=== PATIENT | male | born 1950 | race Caucasian/White ===

== ENCOUNTER → 2017-06-18 | Outpatient (CLI) | payer OTHER | END | disposition home or self-care (01) | LOC: C.RDSM 07:35 | PROVIDERS: ATTEND Physical Medicine & Rehabilitation Sports Medicine | DX: M25.562 Pain in left knee (principal) ==

== ENCOUNTER 2018-11-20 06:23 | Inpatient (IN) ==
--- NOTE | 2018-10-29 17:37 | PAT Medication Instructions ---
Medication Instructions Date of Service October 29, 2018 Home Medications ascorbic acid (vitamin C) 1,000 mg PO QAM aspirin [Aspir-81] 81 mg PO QAM atorvastatin 40 mg PO QAM cyanocobalamin (vitamin B-12) [Vitamin B-12] 1,000 mcg PO QAM docusate sodium [Stool Softener] 250 mg PO QAM omega 6-iae-cus-fish oil [Fish Oil] 1 cap PO QAM STOP taking 2 weeks before surgery omega 7-tam-pcn-fish oil [Fish Oil] 1 cap PO QAM DO NOT take the morning of surgery ascorbic acid (vitamin C) 1,000 mg PO QAM cyanocobalamin (vitamin B-12) [Vitamin B-12] 1,000 mcg PO QAM docusate sodium [Stool Softener] 250 mg PO QAM Take morning of surgery With a small sip of water, OTHERWISE NOTHING TO EAT OR DRINK AFTER MIDNIGHT: aspirin [Aspir-81] 81 mg PO QAM atorvastatin 40 mg PO QAM Insulin Dependent Diabetic Patients * Test your blood sugar the morning of surgery * If Blood Sugar is GREATER THAN 150, take HALF of your regular dose of: * If Blood Sugar is LESS THAN 150, DO NOT TAKE ANY: Other Notes If you have any questions please call us at [phone] or [phone] or [phone] or [phone]
--- NOTE | 2018-10-30 14:08 | Anesthesiology Consultation ---
Date of Service October 30, 2018 Assessment & Plan (1) Encounter for pre-operative examination: Medical clearance with PCP on surgeon's orders Cardio clearance -- Dr. Rodriguez (per verbal from Bria at surgeon's office they asked for clearance but have not rec'd it as of 11/01) Most recent pacer check. Chart Review Chart Review: Acceptable Risk for Surgery (pending above) and Patient seen in Pre Admission Testing Teaching & Discussion Instructed NPO after midnight before surgery, except medications with 15 cc of water. Medication instructions provided according to the PAT guidelines. History Surgery Operation Date: 11/20/18 07:00 Proposed Procedures p Left Knee Total Knee Arthroplasty - Americo Guy MD Height/Weight Height: 6 ft 3 in Weight: 99.6 kg Allergies Allergy/AdvReac Type Severity Reaction Status Date / Time No Known Allergies Allergy Verified 10/28/18 14:55 Medications Home Medications Medication Instructions Recorded Confirmed Last Taken ascorbic acid (vitamin C) [Vitamin 1,000 mg PO QAM 07/29/18 10/28/18 Unknown C] aspirin [Aspir-81] 81 mg PO QAM 07/29/18 10/28/18 Unknown atorvastatin 40 mg PO QAM 07/29/18 10/28/18 Unknown cyanocobalamin (vitamin B-12) 1,000 mcg PO QAM 07/29/18 10/28/18 Unknown [Vitamin B-12] docusate sodium [Stool Softener] 250 mg PO QAM 07/29/18 10/28/18 Unknown omega 0-qyt-sdy-fish oil [Fish Oil] 1 cap PO QAM 07/29/18 10/28/18 Unknown Past Medical History Medical History Arrhythmia 14 day event monitor done 07/2018. Symptomatic PACs; 3 episodes of advanced heart block, one with 3 second pause. Had pacer put in 09/02/18 CAD (coronary artery disease) NON-OBSTRUCTIVE, "MILD" Deep vein thrombosis LLE 5+ YEARS AGO; WAS ON XARELTO X 6 MONTHS- NO ISSUES SINCE Hyperlipidemia Nausea and vomiting after administration of anesthetic agent Osteoarthritis Pacemaker 09/02/18. surespot. Most recent check 09/2018. Exercise / Class Metabolic Activity II 4-5 Yardwork/Stairs/Walk up hill (Denies CP or SOB with 1 FOS) Past Family History Family History Grandfather Family history of diabetes mellitus Past Surgical History Surgical History H/O shoulder surgery right History of arthroscopy LEFT KNEE History of cardiac cath 5+ YEARS= NO STENTS History of colonoscopy History of eye surgery B/L LENS SURGERY S/P placement of cardiac pacemaker 08/2018 at [facility]. follows with Dr. Angel. Past Anesthesia History No Hx of Anesthesia Complications (other than PONV) and No Family Hx of Anesthesia Complications History of PONV No Hx of Motion Sickness and History of PONV (MULTIPLE EPISODES) Social History Smoking Status: Former smoker tobacco type: cigarettes Smoking cigarettes per day: HX OF SOCIAL USE; QUIT 40 YEARS AGO (TOTAL OF LESS THAN A YEAR) Do You Dip or Chew Tobacco: No Hx Alcohol Use: Yes alcohol intake frequency: a few times a month Hx Substance Use: No substance use type: does not use Review of Systems Pt denies any recent chest pain, shortness of breath, palpitations, cough, fever or URI. Physical Exam Vital Signs BP: 134/78 P: 54bpm SPO2: 97% RA T: 98.2 F R: 16 ENMT Mouth: + dental restorations (one implant upper R, broken); no chipped teeth and no loose teeth Thyromental Distance: > or= 3.5 Finger Breadths (3.5) Mallampati Class: I Neck normal visual inspection; neck extension not limited Respiratory normal respiratory effort Auscultation: lungs clear to auscultation bilaterally Cardiovascular Rate/Rhythm: regular rhythm and + bradycardic Heart Sounds: no murmur Vessels: no carotid bruit Extremities: no edema Testing Laboratory Results 10/30/18 14:20 10/30/18 14:20 PT 10.6 Seconds (9.0-12.0) 10/30/18 14:20 INR 1.0 (0.9-1.1) 10/30/18 14:20 APTT 24.9 Seconds (21.0-31.0) 10/30/18 14:20 Urine Color Yellow 10/30/18 14:20 Urine Appearance Clear (Clear) 10/30/18 14:20 Urine pH 5.0 (4.5-7.5) 10/30/18 14:20 Ur Specific [place] 1.022 (1.000-1.030) 10/30/18 14:20 Urine Protein Negative (Negative) 10/30/18 14:20 Urine Glucose (UA) Negative (Negative) 10/30/18 14:20 Urine Ketones Negative (Negative) 10/30/18 14:20 Urine Nitrite Negative (Negative) 10/30/18 14:20 Ur Leukocyte Esterase Negative (Negative) 10/30/18 14:20 Blood Type B Positive 10/30/18 14:20 Antibody Screen NEGATIVE 10/30/18 14:20 *Pt displayed no signs of hypoglycemia at PAT appt. Electrocardiogram Date: 10/30/18 Findings: + SB @ (57bpm) Chest X-Ray Date: 08/05/18 Findings: + NAD Echocardiogram Date: 07/24/17 Borderline LVH. No RWMA. EF 50-55%. Mild MR/TR. Borderline pulmonary HTN (PASP 23-28mmhg). Grade I DD. Stress Test Date: 08/07/18 Type: exercise Normal left ventricle size. Left ventricle has normal systolic function. Borderline dilated right ventricle. The right ventricle has grossly normal function. Thickened aortic valve. There is an impaired relaxation pattern consistent with diastolic dysfunction grade 1. Atrial septal aneurysm. The blood pressure response to stress was normal. Functional capacity was above average. There were no stress induced chest pains, ischemic EKG changes or wall motion normalities. LV global systolic function response to stress was normal. This is a negative stress EKG/echocardiographic test for ischemia, therefore, there is a low suspicion for significant coronary artery disease. Cardiac Catheterization Date: 04/25/12 Mild coronary artery disease. CX 10-20%. RCA 20%. LAD 30% stenosis. EF 55%. No aortic stenosis. Medical management recommended.
[2018-10-30 15:01] LABS: Basophils # (auto) 0.01 K/uL (0-0.2); Basophils % (auto) 0.2 %; Eosinophils # (auto) 0.08 K/uL (0-0.5); Eosinophils % (auto) 1.7 %; Hematocrit (blood only) 35.5 % (42-52); Immature Granulocytes # (auto) 0.01 K/uL (0.00-0.02); Immature Granulocytes % (auto) 0.2 %; Lymphocytes # (auto) 1.37 K/uL (1.2-3.4); Lymphocytes % (auto) 29.6 %; Mean Corpuscular Hemoglobin 29.4 pg (25-34); Mean Corpuscular Hgb Conc 33.8 g/dL (32-36); Mean Platelet Volume 10.1 fL (7.4-10.4); Monocytes % (auto) 8.6 %; Neutrophils # (auto) 2.76 K/uL (1.4-6.5); Neutrophils % (auto) 59.7 %; Platelet Count 146 K/uL (130-400); RDW Coefficient of Variation 13.3 % (11.5-14.5); RDW Standard Deviation 42.7 fL (36.4-46.3); Red Blood Count 4.08 M/uL (4.7-6.1); White Blood Count 4.63 K/uL (4.8-10.8)
[2018-10-30 15:02] LABS: Appearance Urine Clear (Clear); Bilirubin Urine Negative (Negative); Blood Urine Negative (Negative); Color Urine Yellow; Glucose Urine UA Negative (Negative); Ketones Urine Negative (Negative); Leukocyte Esterase Urine Negative (Negative); Nitrite Urine Negative (Negative); Protein Urine Negative (Negative); Specific Gravity Urine 1.022 (1.000-1.030); Urobilinogen Urine Negative (Negative)
[2018-10-30 15:14] LABS: Partial Thromboplastin Ratio 0.9; Partial Thromboplastin Time 24.9 Seconds (21.0-31.0); Prothrombin Time 10.6 Seconds (9.0-12.0)
[2018-10-30 16:46] LABS: BUN Creatinine Ratio 18.2 (10-20); Calcium 8.5 mg/dl (8.5-10.1); Creatinine Clr Calc Pharmacy 79.8 ml/min; Est GFR (African American) 84.9; Est GFR (Non-African American) 73.3; Potassium 3.9 mmol/L (3.5-5.1)
--- NOTE | 2018-11-04 15:15 | History and Physical Report ---
DATE OF ADMISSION: 11/20/2018 ATTENDING PHYSICIAN: Americo Guy MD CHIEF COMPLAINT: Left knee pain. HISTORY OF PRESENT ILLNESS: The patient is a pleasant 68-year-old male who is here today for preoperative history and physical. He is scheduled to undergo a left total knee arthroplasty on 11/20/[address] Americo Guy. He has had left knee pain and some degree for the last 4-6 months. He states he noticed a twisting and felt a pop in his knee. His pain has persisted medially. He denies any known swelling. He does have occasional locking episodes. He does have a remote history of having a knee arthroscopy approximately 10 years ago. He denies any numbness or tingling. Pain is worse with activity and weightbearing. Pain is affecting his activities of daily living. He does have pain on a daily basis. He has tried activity modification as well as Euflexxa injections and oral NSAIDs without lasting improvement. Due to his failure of conservative treatment, he elects to proceed with a left total knee arthroplasty in hopes of alleviating his discomfort. PAST MEDICAL HISTORY: 1. Elevated cholesterol. 2. History of DVT approximately 5 years ago. 3. Coronary artery disease. 4. History of cardiac catheterization. 5. Arachnoid cyst of the right frontal lobe. 6. Osteoarthritis. 7. Mobitz type 2 second-degree heart block with pacemaker placement in August of 2018. PAST SURGICAL HISTORY: 1. Right shoulder arthroscopy. 2. Left knee arthroscopy. 3. Cardiac catheterization in 2013. 4. Pacemaker in August of 2018. SOCIAL HISTORY: He is retired and lives with his , . Denies any tobacco, alcohol or recreational use. He does occasionally drink alcohol on social occasions. FAMILY HISTORY: Significant for his father who had a history of a stroke and myocardial infarction. His grandfather also had a history of diabetes. CURRENT MEDICATIONS: 1. Calcium. 2. Aspirin. 3. Stool softener. 4. Lipitor 20 mg daily. 5. Vitamin C daily. 6. Vitamin B12 daily. ALLERGIES: He has no known drug allergies. REVIEW OF SYSTEMS: He denies any recent fevers, chills, cough, cold, flu-like symptoms. Denies any recent hospitalizations. Denies any history of bleeding or clotting disorders. He does have a history of DVT approximately 5 years ago. No history of pulmonary embolism. Denies any history of phlebitis. Denies any lightheadedness, dizziness, migraines, seizures, syncopal episodes. He denies any abdominal pain, nausea, vomiting, diarrhea, constipation, heartburn or indigestion. Denies any urinary symptoms such as frequency, burning or foul smelling urine. Denies any prostate problems. PHYSICAL EXAMINATION: GENERAL: He is alert and oriented x3. He is in no acute distress. Well-dressed, well-nourished male. SKIN: Warm and dry with good turgor. No rashes or lesions. No ecchymosis or erythema. HEENT: Head is atraumatic, normocephalic. Eyes: Extraocular movements intact. Pupils are equal, round and reactive to light. Sclerae are normal. Ears: Hearing is grossly normal. TMs are clear with normal light reflex. Nose: Nares are patent bilaterally without turbinate enlargement. Oropharynx is clear with uvula midline. No erythema or exudate. Oral mucosa is moist. Fair dentition. Fillings are noted. LUNGS: Clear to auscultation bilaterally. No crackles, rhonchi or wheezing. Good air movement. No accessory muscle use. HEART: Regular rate and rhythm. No murmurs, gallops or rubs appreciated. Normal S1, S2. ABDOMEN: Soft, nontender, nondistended. Normal bowel sounds heard in all 4 quadrants. MUSCULOSKELETAL: Left knee evaluation revealed no intra-articular effusion. He has focal discomfort with palpation of the medial joint line and lateral joint line discomfort with palpation today. Stable collateral ligaments. No defect in the patellar tendon or quadriceps tendon. Varus alignment. He has essentially full terminal extension and flexion to 110 degrees. Strength is 5/5 with good quad tone. Ambulatory with a slight antalgic gait. NEUROLOGIC: Gross sensation is intact across both lower extremities by soft touch. Cranial nerves II-XII are intact. RADIOLOGIC IMAGES: X-rays obtained show varus alignment bilaterally of both knees. Medial joint space narrowing, tricompartmental degenerative joint disease with periarticular osteophytes noted. IMPRESSION: End-stage osteoarthritis, left knee. PLAN: The patient is scheduled for an elective left total knee arthroplasty with Dr. Guy on 11/20/2018. Risks and complications of the procedure were explained to the patient and informed consent will be obtained on the day of surgery by Dr. Guy. He will have preadmission testing later today. We will use Coumadin for DVT prophylaxis after surgery for approximately 6 weeks. He would like to go home with in-home physical therapy after surgery. Postoperative course was discussed. He will obtain medical clearance from his family physician prior to surgery. 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 He was given another prescription for a rolling walker, which he will use after surgery. All questions were answered and he knows to call with any further problems, questions, or concerns.
[~2018-11-20 06:23] MED LIST: CEFAZOLIN 2000MG 2,000 MG/15 ML SYR IV SCH; LR 500ML BOLUS, THEN 15ML/HR IV SCH; LR 60ML/HR IV SCH; ROPIVACAINE 0.5% HCL/PF 150 MG, BUPIVACAINE 0.5% MPF 30 ML, EPINEPHrine 0.15 MG, Ketoro... INFIL SCH; TRANEXAMIC ACID 1,000 MG **IV Pre-op IV SCH; TRANEXAMIC ACID 1,000 MG x 1 **For Topical Use TOP SCH
[2018-11-20] MEDS ORDERED: ROPIVACAINE 0.5% 5 MG/ML 30 ML VIAL ONE (06:26)
[2018-11-20] MEDS ORDERED: BUPIVACAINE 0.5 % 5 MG/1 ML PF 10ML VIAL ONE (06:26)
[2018-11-20] MEDS ORDERED: EPINEPHrine INJ 1 MG/ML AMP ONE (06:26)
--- NOTE | 2018-11-20 06:33 | History & Physical Bridge Note ---
Date of Service November 20, 2018 History & Physical Bridge Note I have examined the patient, reviewed the History & Physical and in the interval since the performance of the History & Physical I have noted the following changes of clinical significance:consent obtained. no changes noted
[2018-11-20] MEDS ORDERED: MIDAZOLAM HCL 1 MG/ML 2ML VIAL ONE ×2 (07:23)
[2018-11-20] MEDS ORDERED: fentaNYL citrate 100 MCG/2 ML VIAL ONE (07:23)
[2018-11-20] MEDS ORDERED: SCOPOLAMINE 1.5 MG TDSY ONE (08:34)
[2018-11-20] MEDS ORDERED: SCOPOLAMINE 1.5 MG TDSY TD ONE (08:35)
[2018-11-20] MEDS ORDERED: ORTHO JOINT ANESTHETIC ONE (08:48)
[2018-11-20] MEDS ORDERED: LIDOCAINE HCL 2% 2 ML VIAL/AMP(20MG/ML) INFIL ONE (09:31)
[2018-11-20] MEDS ORDERED: PROPOFOL IV EMULSION 10 MG/ML 20 ML VIAL IV ONE (09:31)
[2018-11-20] MEDS ORDERED: ONDANSETRON INJ 2 MG/ML 2 ML VIAL ONE (09:31)
--- NOTE | 2018-11-20 10:58 | Post Operative Brief Note ---
Immediate Post Op Note v1 Date of Surgery November 20, 2018 Pre & Post Diagnosis Operation Date: 11/20/18 08:50 Pre-Op Diagnosis: Left Knee End-Stage Degenerative Joint Disease Post-Op Diagnosis: Left Knee End-Stage Degenerative Joint Disease Procedure Operation Date: 11/20/18 08:50 Actual Procedures p Left Knee Total Knee Arthroplasty(Left) - Americo Guy MD Surgeon Americo Guy MD Lumber Mover lin [email or web address] Estimated Blood Loss 50 Findings Consistent with Post-Op Diagnosis
--- NOTE | 2018-11-20 11:03 | Operative Report ---
Post Operative Report Pre & Post Diagnosis Operation Date: 11/20/18 08:50 Pre-Op Diagnosis: Left Knee End-Stage Degenerative Joint Disease Post-Op Diagnosis: Left Knee End-Stage Degenerative Joint Disease Procedure Operation Date: 11/20/18 08:50 Actual Procedures p Left Knee Total Knee Arthroplasty(Left) - Americo Guy MD Surgeon YONI Guy MD Gunner'S Mate G lin [email or web address] Estimated Blood Loss 50 Findings Consistent with Post-Op Diagnosis Specimens see operative report Drains none Complications none Disposition Accompanied Patient To Recovery: Yes Disposition: Recovery Room Indications This 68-year-old white male presented to the office with complaints of intractable left knee pain. He had tried conservative care measures without improvement. Patient elected to proceed with surgical intervention after being educated about potential risks and outcomes. Preoperative imaging was obtained. Description of Procedure Patient was administered a spinal anesthetic and then taken to the operating room where he was given sedation. He was prepped and draped in the usual sterile fashion. Please see Dr. Guy's operative report for specifics of the procedure. I was present for the entire case from initial patient positioning through final wound closure. Assistance was provided in tissue retraction, hemostasis, trial implant placement, final implant placement, and final wound closure. Patient was taken to the recovery room in satisfactory condition. I attest to the content of the Intraoperative Record and any orders documented therein. Any exceptions are noted below.
--- NOTE | 2018-11-20 11:09 | Operative Report ---
Post Operative Report Pre & Post Diagnosis Operation Date: 11/20/18 08:50 Pre-Op Diagnosis: Left Knee End-Stage Degenerative Joint Disease Post-Op Diagnosis: Left Knee End-Stage Degenerative Joint Disease Procedure Operation Date: 11/20/18 08:50 Actual Procedures p Left Knee Total Knee Arthroplasty(Left) - Americo Guy MD Surgeon Americo Guy MD Senior Health Consultant lin mckeon Estimated Blood Loss 50 Findings Consistent with Post-Op Diagnosis Specimens As per procedure notes Complications none Disposition Accompanied Patient To Recovery: Yes Disposition: Recovery Room Indications 68/M with R knee degenerative arthritis with no relief from conservative measures Description of Procedure Supine, standard prep and drape, under tourniquet control, time out, right knee TKR performed. Please see Dr Guy's op notes for specific details. I was present throughout the case, assisted for wound closure and transferred the patient to PACU in stable condition I attest to the content of the Intraoperative Record and any orders documented therein. Any exceptions are noted below.
--- NOTE | 2018-11-20 11:35 | Operative Report ---
DATE OF OPERATION: 11/20/2018 SURGEON: Americo Guy MD ROCK CRUSHER: Sulema, fellow. SECOND ROCK CRUSHER: PAM Pleitez PREOPERATIVE DIAGNOSIS: Left knee osteoarthritis with varus deformity. POSTOPERATIVE DIAGNOSIS: Left knee osteoarthritis with varus deformity. OPERATION PERFORMED: Cemented left total knee replacement. PERIOPERATIVE SITUATION: Medically cleared male with intractable knee pain been followed for years. At this point in time, wants to proceed with surgical treatment. He has particularly medial disease and patellofemoral disease. He has no major flexion contracture. His x-rays reveal medial compartment joint space narrowing and patellofemoral narrowing. DESCRIPTION OF PROCEDURE: The patient was identified, site verified, consent verified. Antibiotics confirmed as being given. The left lower extremity was prepped and draped in usual routine fashion. Tourniquet was inflated to 300 mmHg after exsanguination of limb with a rubber Esmarch bandage for a total of about 58 minutes. Midline exposure utilized. Parapatellar arthrotomy performed. Synovectomy completed. Osteophytes resected. Medial compartment had grade 4 disease over its entire weightbearing surface of the medial femur. The tibial side was grade 3, patellofemoral joint had grade 3-4 disease in the trochlea. The lateral compartment was relatively healthy. Once the patella was everted and the synovectomy completed, the distal femur was then entered and then the cruciates resected. The tibia was subluxated, the menisci resected. The distal femur was then resected 12 mm, proximal tibia 4 mm. He was then sized between a 6 and a 5, it was measured 6 cut 5. There was no notching. Flexion gap was excellent. The box cut was then made and the size 5 fit well. Tibia was then subluxated and the size 5 tibial tray placed and appropriately aligned and then impacted into position and broaching reaming carried out and the size 5 trial fit well with a 10 mm spacer. There was no mid range flexion, full flexion or extension instability. The patella tracked well. The patella was then everted and resected leaving about 15-16 mm. A 41 template was then applied. The seating holes made and the trial tracked well. The Orthomix was then injected all around the knee. Once the implants were removed, the Orthomix was injected posteriorly and then the wound irrigated and the TXA placed topically for 3 minutes. After that, the wound was irrigated with Betadine and Pulsavac and then the permanent cemented into position starting with the tibia, femur and patella in that order. After 12 minutes, the tourniquet deflated. Minor bleeding points controlled with electrocautery. EBL was 50 mL. Bone pathology pending on resections. Once everything was cured, the trial implant was removed. There was no major cement removal required, just a small amount medially on the femur and then the wound irrigated one final time with Pulsavac and Betadine. Permanent liner seated, knee reduced and then closed with about 50 degrees of flexion with #2 Vicryl, 2-0 Vicryl and stainless steel clips. Appropriate dressing applied. SUMMARY OF IMPLANTS: Size 5 posterior cruciate substituting femur, size 5 mobile bearing tray tibia, oval dome 3 peg patella size 41, tibial insert size 5, 10 mm thick posterior cruciate substituting, 2 bags of Palacos G cement. ESTIMATED BLOOD LOSS: 50 mL. DVT prophylaxis is going to be with Eliquis based on the fact he has a history of DVT. We will start the exactly 24 hours from surgery. We will get a prophylactic aspirin tonight. EBL again was 50 mL. Will be weightbearing and upright as soon as possible. I attest to the content of the Intraoperative Record and any orders documented therein. Any exception s are noted below.
--- NOTE | 2018-11-20 11:36 | XRay Report ---
TWO VIEWS LEFT KNEE CLINICAL HISTORY: Postoperative examination. FINDINGS: AP and crosstable lateral portable views of the left knee are obtained. A left knee arthrop lasty is in near anatomic alignment. There has been undersurface remodeling of the patella. No acute fracture is seen. There are expected postoperative changes around the knee including skin clips, soft tissue edema, and subcutaneous gas. IMPRESSION: Expected postoperative changes status post left knee arthroplasty. No acute fracture is s een. Electronically signed by: Kolton Sawyer M.D. 11/20/2018 11:34 AM
--- NOTE | 2018-11-20 11:52 | Anesthesiology Progress Note ---
Date of Service November 20, 2018 Anesthesia Post Procedure Vital Signs Vital Signs: Temp Pulse Resp BP BP Pulse Ox 11/20/18 11:40 58 L 19 129/69 97 11/20/18 11:30 55 L 15 119/70 98 11/20/18 11:20 50 L 18 110/68 100 11/20/18 11:10 52 L 12 113/70 100 11/20/18 11:04 36.1 C L 52 L 16 119/65 94 11/20/18 07:34 36.4 C L 54 L 16 141/64 H 98 Pain Intensity Left Knee: Pain Intensity: 0 Transfer of Care Handoff Completed per policy Notes Mental Status: alert / awake / arousable Patient Amnestic to Procedure: Yes Nausea / Vomiting: adequately controlled Pain: adequately controlled Airway Patency, RR, SpO2: stable & adequate BP & HR: stable & adequate Hydration State: stable & adequate Anesthetic Complications: no major complications apparent and Pt Satisfied with anesthetic care
--- NOTE | 2018-11-20 11:53 | Progress Note ---
DATE: 11/20/2018 SUBJECTIVE: Postop check status post left total knee replacement. The patient is in the recovery room. He has no major issues. He denies chest pain, shortness of breath, fever, chills, nausea, vomiting or headache. His neurovascular check is limited by the spinal. He can start rolling his hips but there is nothing below that. Wound dressing clean, dry and intact. Postop x-rays look excellent. Small amount of calcification in the lateral capsule consistent with some calcification in the capsule. There was no loose body and does not cement. In this regard, any radiology reading is perfectly fine. ASSESSMENT: Doing well status post left total knee replacement. We will follow up for potential discharge tomorrow. VICKI
--- NOTE | 2018-11-20 11:57 | Discharge Summary ---
CHIEF COMPLAINT: Left knee pain. HISTORY OF PRESENT ILLNESS: The patient underwent elective left total knee replacement. At present, postop course has been uneventful. He denies any chest pain, shortness of breath, fever, chills, nausea, vomiting or headache. He has yet to get out of bed. We will do so in the near future. PAST MEDICAL HISTORY: Remarkable for elevated cholesterol, history of DVT, coronary artery disease, history of cardiac catheterization, arachnoid cyst frontal lobe, osteoarthritis, Mobitz type 2 second-degree heart block with pacemaker. PAST SURGICAL HISTORY: Remarkable for shoulder arthroscopy, knee arthroscopy, cardiac catheterization, pacemaker. SOCIAL HISTORY: Reveals he is retired. Lives with his . He is . Denies any tobacco or alcohol. He does occasionally have a social drink. FAMILY HISTORY: Remarkable for cerebrovascular disease in his father and coronary artery disease in his father and grandfather also has a history of diabetes. PREADMISSION MEDICATIONS: Include calcium, aspirin, stool softener, Lipitor, vitamin C and vitamin B. He will be discharged on pain medication, Percocet 1 p.o. q.4 hours p.r.n. and be discharged on Eliquis to keep his blood thinned for 3-4 weeks and go to aspirin. ALLERGIES: None. REVIEW OF SYSTEMS: Reveals no chest pain, shortness of breath, fever, chills, nausea, vomiting or headache. Postop x-rays look excellent. Small calcification in the lateral capsule. Otherwise, no other findings and the alignment is improved. Implants look excellent. ASSESSMENT: Doing well status post left total knee replacement. PLAN: Continue with care pathway and potential discharge tomorrow morning.
[2018-11-20] MEDS ORDERED: fentaNYL citrate 100 MCG/2 ML VIAL IV PRN (12:41)
[2018-11-20] MEDS ORDERED: ATROPINE SULFATE 0.1 MG/ML 10ML SYR IV PRN (12:41)
[2018-11-20] MEDS ORDERED: ePHEDrine sulfate 50 MG/ML AMP IV PRN (12:41)
[2018-11-20] MEDS ORDERED: ALUMINUM/MAGNESIUM SUSP 30 ML UDC PO PRN (12:58)
[2018-11-20] MEDS ORDERED: OXYCODONE HCL IR 5 MG TAB (IMMEDIATE RELEASE) PO PRN (12:58)
[2018-11-20] MEDS ORDERED: BISACODYL 10 MG SUPP PR PRN (12:58)
[2018-11-20] MEDS ORDERED: TAMSULOSIN HCL 0.4 MG CAP PO PRN (12:58)
[2018-11-20] MEDS ORDERED: NALOXONE HCL 0.4 MG/1 ML VIAL/CARP IV PRN (12:58)
[2018-11-20] MEDS ORDERED: MAGNESIUM HYDROXIDE SUSP 30 ML UDC PO PRN (12:58)
[2018-11-20] MEDS ORDERED: ONDANSETRON INJ 2 MG/ML 2 ML VIAL IV PRN (12:58)
[2018-11-20] MEDS ORDERED: METOCLOPRAMIDE HCL INJ 5 MG/ML 2 ML VIAL IV PRN (12:58)
[2018-11-20] MEDS ORDERED: DiphenhydrAMINE HCL 50 MG/ML VIAL IV PRN (12:58)
[2018-11-20] MEDS ORDERED: HYDROmorphone INJ 0.5 MG/0.5 ML SYR IV PRN (12:58)
[2018-11-20] MEDS ORDERED: SODIUM CHLORIDE 0.9% 1000ML 1,000 ML IV SCH (13:30)
[2018-11-20] MEDS: KETOROLAC TROMETHAMINE 15 MG/ML VIAL IV SCH ×2 (13:43→19:35)
[2018-11-20] MEDS: ACETAMINOPHEN 500 MG TAB PO SCH ×2 (13:43→21:38)
[2018-11-20] MEDS: CEFAZOLIN 2000MG 2,000 MG/15 ML SYR IV SCH (17:03)
[2018-11-20] MEDS: ASCORBIC ACID 500 MG TAB PO SCH (17:04)
[2018-11-20] MEDS: FERROUS GLUCONATE 324 MG TAB PO SCH (17:04)
[2018-11-20] MEDS ORDERED: SENNA 8.6 MG TAB PO SCH (21:00)
[2018-11-20] MEDS: DOCUSATE SODIUM 100 MG CAP PO SCH (21:37)
[2018-11-20] MEDS: ASPIRIN 325 MG ECTAB PO SCH (21:38)
[2018-11-21] MEDS: CEFAZOLIN 2000MG 2,000 MG/15 ML SYR IV SCH (00:18)
[2018-11-21] MEDS: KETOROLAC TROMETHAMINE 15 MG/ML VIAL IV SCH ×2 (02:25→07:51)
[2018-11-21] MEDS: ACETAMINOPHEN 500 MG TAB PO SCH (05:38)
--- NOTE | 2018-11-21 07:20 | Progress Note ---
DATE: 11/21/2018 SUBJECTIVE: Doing well status post left total knee replacement. He is sitting up in the chair. Denies any chest pain, shortness of breath, fever, chills, nausea, vomiting or headache. OBJECTIVE: Vital signs are stable. He is afebrile. A.m. labs are pending. Can do a femoral straight leg raise. Can dorsi and plantarflex his toes. ASSESSMENT: Doing well. Calves nontender. Plan is to discharge to home today. Eliquis 2.5 mg p.o. b.i.d., initiate first 24 hours after surgery, sometime this morning. Follow up in 2 weeks for staple removal.
[2018-11-21 07:32] LABS: Hematocrit (blood only) 35.7 % (42-52); Hemoglobin 11.8 g/dL (14.0-18.0); Mean Corpuscular Hemoglobin 28.8 pg (25-34); Mean Corpuscular Hgb Conc 33.1 g/dL (32-36); Mean Corpuscular Volume 87.1 fL (80-100); Mean Platelet Volume 9.8 fL (7.4-10.4); Platelet Count 150 K/uL (130-400); RDW Coefficient of Variation 13.3 % (11.5-14.5); RDW Standard Deviation 42.9 fL (36.4-46.3)
[2018-11-21] MEDS: FERROUS GLUCONATE 324 MG TAB PO SCH (07:51)
[2018-11-21] MEDS: ASCORBIC ACID 500 MG TAB PO SCH (07:51)
[2018-11-21] MEDS ORDERED: dexAMETHasone 10 MG in SYRINGE 0 ML IV SCH (08:00)
[2018-11-21 08:04] LABS: Calcium 8.7 mg/dl (8.5-10.1); Creatinine Clr Calc Pharmacy 67.9 ml/min; Est GFR (African American) 69.9; Est GFR (Non-African American) 60.3; Potassium 4.4 mmol/L (3.5-5.1)
[2018-11-21 08:08] VITALS: PULSE 50; TEMP 97.7; O2SAT 98
[2018-11-21] MEDS: DOCUSATE SODIUM 100 MG CAP PO SCH (08:22)
[2018-11-21] MEDS: ASPIRIN 325 MG ECTAB PO SCH (08:22)
[2018-11-21] MEDS ORDERED: ATORVASTATIN 40 MG TAB PO SCH (09:00)
[2018-11-21] MEDS ORDERED: MULTIVITAMIN TAB PO SCH (09:00)
--- NOTE | 2018-11-21 09:35 | Orthopedic Progress Note ---
Date of Service November 21, 2018 Assessment & Plan (1) Status post total knee replacement, left: Continue with ice and elevation Continue use of his walker. Dressings were changed today by me. New pressure dressing was applied. Discharge today to home after PT/OT Prescriptions provided for Percocet and Eliquis. Follow-up in the office in 2 weeks as scheduled for staple removal. Subjective Patient is seen in his room this morning. He has no current complaints. He is happy with his outcome. No pain. He denies any chest pain, shortness of breath, nausea, vomiting, or abdominal pain. He feels ready for discharge. His is present. No other complaints. Physical Exam Physical Exam: General: Well-developed, well-nourished, in no acute distress. Sitting on a bed. Alert and oriented. Skin: Warm and dry with good turgor. No rashes or lesions. No ecchymosis or erythema. Very mild intra-articular effusion in the left knee. The patient is not diaphoretic. No abrasions. Musculoskeletal: Left knee evaluation reveals intact bandages. Upon removal, he has no drainage on his dressings. They are completely dry. No active drainage from his wound. [place] are intact. He has intact motor function to his toes, ankle, and knee. He is able to perform a straight leg raise. Full terminal extension. Flexion to around 45 degrees. Neurologic: Gross sensation is intact across the left lower extremity by soft touch. Peripheral pulses are 2+. Results & Data Vital Signs (Past 12 Hours) Vital Signs Temp Pulse Resp BP BP Pulse Ox 11/21/18 07:46 36.5 C 50 L 16 116/72 98 11/21/18 03:11 36.7 C 53 L 16 120/69 96 11/20/18 23:35 36.6 C 50 L 17 112/68 96
[2018-11-21] MEDS ORDERED: APIXABAN 2.5 MG TAB PO SCH (10:00)
[2018-11-21 10:32] VITALS: BP 120/69
--- NOTE | 2018-11-21 10:38 | Anesthesiology Progress Note ---
Date of Service November 21, 2018 Anesthesia Post Procedure Vital Signs Vital Signs: Temp Pulse Pulse Resp BP BP Pulse Ox 11/21/18 10:28 36.5 C 50 L 50 L 16 116/72 120/69 98 11/21/18 07:46 36.5 C 50 L 16 116/72 98 11/21/18 03:11 36.7 C 53 L 16 120/69 96 11/20/18 23:35 36.6 C 50 L 17 112/68 96 11/20/18 19:05 36.4 C L 60 18 116/76 98 11/20/18 15:48 36.6 C 62 18 123/73 98 11/20/18 14:45 54 L 16 128/85 96 11/20/18 13:45 54 L 16 123/76 97 11/20/18 13:15 52 L 16 132/78 98 11/20/18 12:45 36.5 C 49 L 16 135/81 99 11/20/18 12:30 50 L 13 129/74 97 11/20/18 12:20 52 L 16 113/71 96 11/20/18 12:10 37.2 C 52 L 13 120/75 97 11/20/18 12:00 60 15 123/71 95 11/20/18 11:50 53 L 18 110/75 97 11/20/18 11:40 58 L 19 129/69 97 11/20/18 11:30 55 L 15 119/70 98 11/20/18 11:20 50 L 18 110/68 100 11/20/18 11:10 52 L 12 113/70 100 11/20/18 11:04 36.1 C L 52 L 16 119/65 94 Pain Intensity Left Knee: Pain Intensity: 5 Notes Mental Status: alert / awake / arousable and participated in evaluation Patient Amnestic to Procedure: Yes Nausea / Vomiting: adequately controlled Pain: adequately controlled Airway Patency, RR, SpO2: stable & adequate BP & HR: stable & adequate Hydration State: stable & adequate Neuraxial Anesthesia: sensory block resolved Anesthetic Complications: no major complications apparent and Pt Satisfied with anesthetic care
== END 2018-11-21 11:07 | disposition home health service (06) | DRG 470 ==
LOC: ASU 06:23 → 3E 11:13